=== PATIENT | female | born 1975 | race African-American/Black ===

== ENCOUNTER 2017-11-30 20:20 | Emergency (ER) | payer OTHER, MEDICARE, MEDICAID ==
[2017-11-30 21:07] VITALS: BP 160/82; PULSE 74; RESP 15; TEMP 99; O2SAT 98
--- NOTE | 2017-11-30 22:14 | RADRPT ---
EXAM DATE: 11/30/2017 10:10 PM EDT AGE/SEX: 42 years / Female INDICATIONS: Fall. Left knee pain. CLINICAL DATA: This is the patient's initial encounter. Patient reports that signs and symptoms have been present for 1 day and indicates a pain score of 8/10. MEDICAL/SURGICAL HISTORY: None. None. COMPARISON: No prior [facility] exams available for comparison. FINDINGS: Bony structures are intact and in normal alignment. Joints are intact without dislocation or signifi cant arthropathy. Osseous density is normal. Soft tissues are unremarkable. No radiopaque foreign bodies seen. CONCLUSION: No evidence of recent bony injury. Electronically signed by: Xander Cornell MD 11/30/2017 10:13 PM EDT
--- NOTE | 2017-11-30 23:15 | PD ---
HPI Chief Complaint: Injury Time Seen by Provider: 23:06 Travel History International Travel<30 days: No Contact w/Intl Traveler<30days: No Traveled to known affect area: No History of Present Illness HPI 42-year-old female presents for evaluation of left knee pain. She reports that at 7:30 PM today she was walking in a store and she slipped on a wet patch and twisted her left knee. She felt a pop sensation. She now has pain in the left knee which is a sharp shooting pain which is constant, aggravated by walking or flexion of the left knee. Denies any other injuries. Denies any associated signs or symptoms. No other complaints at this time. PFSH Past Medical History Cardiovascular Problems: Yes ?: Not LMP: 11/11/2017 Social History Alcohol Use: No Tobacco Use: No Allergies-Medications (Allergen,Severity, Reaction): Coded Allergies: No Known Allergies (Unverified , 11/30/17) Review of Systems Musculoskeletal: Positive: Limited ROM, Pain Skin: Positive Other (Denies open wounds) Neurologic: No: Paresthesia Physical Exam Narrative GENERAL: Well-developed well-nourished female no acute distress SKIN: Warm and dry. No bruising or soft tissue swelling CARDIOVASCULAR: Regular rate and rhythm. No murmur appreciated. RESPIRATORY: No accessory muscle use. Clear to auscultation. Breath sounds equal bilaterally. GASTROINTESTINAL: Abdomen soft, non-tender, nondistended. Hepatic and splenic margins not palpable. MUSCULOSKELETAL: No obvious deformities. There is some generalized mild tenderness to palpation to the left knee joint. There is no obvious joint effusion. The patient is guarding with attempts at flexion of the left knee which is limiting examination. Stress examination deferred secondary to pain. 2+ dorsalis pedis pulse left foot. Distal sensation preserved. NEUROLOGICAL: Awake and alert. No obvious cranial nerve deficits. Motor grossly within normal limits. Normal speech. Data Data Last Documented VS Vital Signs Date Time Temp Pulse Resp B/P (MAP) Pulse Ox O2 Delivery O2 Flow Rate FiO2 11/30/17 21:07 99.0 74 15 160/82 (108) 98 Orders Orders Knee, Complete (4vws) (11/30/17 21:10) Ed Discharge Order (11/30/17 23:12) Splint Or Brace Apply/Monitor (11/30/17 23:12) MDM Medical Decision Making Medical Screen Exam Complete: Yes Emergency Medical Condition: Yes Medical Record Reviewed: Yes Differential Diagnosis Ligamentous disruption, meniscal disruption, tibial plateau fracture, proximal fibular fracture Narrative Course X-ray imaging of the left knee was obtained in triage revealing no acute abnormality's. Based on history there is concern for ligamentous or meniscal injury. Plan is to discharge the patient with knee immobilizer and crutches, recommend follow-up in 1-2 weeks with primary care physician for outpatient MRI if symptoms persist. Diagnosis Primary Impression: Internal derangement of left knee Additional Instructions: Crutches, knee immobilizer. Take Tylenol Motrin as needed for pain per dosing instructions on the bottle. Ice the affected area several times a day 15 minutes at a time. Follow-up with primary care physician in 1-2 weeks for recheck. Return for any emergent medical conditions. Med/Other Pt SpecificInfo: Orthopedic Instructions Disposition: 01 DISCHARGE HOME Condition: Stable Giuseppe Kennedy Nov 30, 2017 23:15
== END 2017-11-30 23:38 | disposition home or self-care (01) ==
LOC: NEPD 20:20
DX: M23.92 Unspecified internal derangement of left knee (principal); W18.49XA Other slipping, tripping and stumbling without falling, initial encounter; X50.1XXA Overexertion from prolonged static or awkward postures, initial encounter; Y92.512 Supermarket, store or market as the place of occurrence of the external cause
CPT/HCPCS: 73564; 99283; E0113; L1830